=== PATIENT | male | born 1945 | race Caucasian/White ===

== ENCOUNTER → 2018-12-09 09:12 | Outpatient (CLI) | payer MEDICARE, OTHER ==
[~2018-12-09 09:12] MED LIST: BAYER CHEWABLE81 MG PO; CYANOCOBAL1000 MCG/4 SC; LIPITOR10 MG PO; NAPROSYN500 MG PO; [UNRECOGNIZED DRUG - OTHER] TOPICAL
[2018-12-18 12:19] VITALS: BMI 22.8
== END | disposition home or self-care (01) ==
LOC: D.HCCECHO 09:12
PROVIDERS: ATTEND Internal Medicine Cardiovascular Disease
DX: I20.9 Angina pectoris, unspecified (principal)

== ENCOUNTER 2018-12-18 10:59 | Outpatient (CLI) | payer MEDICARE, OTHER ==
[~2018-12-18] VITALS: Ht 172.7 cm; Wt 68.2 kg
--- NOTE | ~2018-12-18 | HEMODYNAMI ---
PATIENT:DOREEN TOBIN MEDICAL RECORD: [id number] : 43 LOCATION:[facility] ADMISSION DATE: 12/18/18 Generatedon:12/18/201815:25 Patient name: DOREEN TOBIN Patient #: [id number] SSN: : 1945 Date of study: 12/18/2018 Page: Of Hemodynamic Procedure Report Patient Data Patient Demographics Procedure consent was obtained First Name: DOREEN Gender: Male Last Name: MAHAD : 1945 Patient #: [id number] Age: 73 year(s) Race: Additional ID: [id number] Contact details [address]: [address] [place] [address] [place] State: [place] City: [place] Zip code: [address] Past Medical History Allergies: No known allergies Admission Admission Data Admission Date: 12/18/2018 Admission Time: 10:59 Arrival Date: 12/18/2018 Arrival Time: 0:00 Height (in.): 67.72 BSA: 1.8 (m2) Height (cm.): 172 BMI: 22.99 (kg/m2) Weight (lbs.): 149.92 Weight (kg.): 68 Lab Results Lab Result Date: 12/18/2018 Lab Result Time: 0:00 Biochemistry Name Units Result Min Max BUN mg/dl 12 --(-*--)-- 7 18 Creatinine mg/dl 0.9 --(-*--)-- 0.6 1.3 eGFR ml/min 88.10448 -*(----)-- 90 120 NONAFRICAN CBC Name Units Result Min Max Hematocrit % 45.5 --(-*--)-- 42 54 Hemoglobin g/dl 15.4 --(-*--)-- 13.5 17.5 Procedure Procedure Types Cath Procedure Diagnostic Procedure LHC LHC w/Coronaries Procedure Description Procedure Date Procedure Date: 12/18/2018 Procedure Start Time: 15:06 Procedure End Time: 15:21 Procedure Staff Name Function Pierre Beth MD Performing Physician Blossom Ashley RT Monitor Emely Beckham RT Monitor Rubi Rojas RT Scrub Felice Park RN Nurse Procedure Data Cath Procedure Fluoroscopy Diagnostic fluoroscopy Total fluoroscopy Time: 4.3 time: 4.3 min min Diagnostic fluoroscopy Total fluoroscopy dose: 376 dose: 376 mGy mGy Contrast Material Contrast Material Type Amount (ml) Isovue 300 63 Entry Location Entry Primary Successful Side Size Upsize Upsize Entry Closure Guzman ccessful Closure Location (Fr) 1 (Fr) 2 (Fr) Remarks Device Remarks Radial Right 6 Fr Mechanical artery Short Compression Estimated blood loss: 5 ml Diagnostic catheters Device Type Used For End Catheter Placement DIAGNOSTIC Adrien 110cm Procedure 5Fr catheter ([id number]) DIAGNOSTIC Gypsum 110cm 5 Procedure Fr catheter (660018) Procedure Complications No complications Procedure Medications Medication Administration Route Dosage Oxygen etCO2 Nasal cannula 2 l/min Lidocaine 2% added to field 20 Heparin Flush Bag added to field 2 bags (1000units/500ml NS) 0.9% NaCl I.V. 100 ml/hr Radial Cocktail I.A. 1 syringe (Verapamil 2mg/Nitro 400mcg/Heparin 1500units) Versed I.V. 1 mg Fentanyl I.V. 50 mcg Versed I.V. 1 mg Fentanyl I.V. 50 mcg Versed I.V. 1 mg Versed I.V. 1 mg Hemodynamics Rest BSA: 1.8 (m2) HGB: 15.4 (g/dl) O2 Consumption: Estimated: 214.99 (ml/min) O2 Con sumption indexed: Estimated:119.44 (ml/min/m) Heart Rate: 81 (bpm) Pressure Samples Time Site Value (mmHg) Purpose Heart Use Rate(bpm) 15:09 LV 152/-3,10 Snapshot 94 15:09 AO 110/61(77) Pullback 91 15:09 LV 141/-3,18 Pullback 91 Gradients Valve Time Site 1 Site 2 Mean SEP/DFP Peak To Heart Use (mmHg) (sec/min) Peak Rate (mmHg) (bpm) Aortic 15:09 LV AO 14 11 31 91 141/-3,18 110/61(77) Calculations Valve P-P Mean Valve Index Valve Source Name Gradient Area Flow (cm2) Aortic 31 14 31 14 Snapshots Pre Cath Intra NCS Post Cath Vital Signs Time Heart Resp SPO2 etCO2 NIBP (mmHg) Rhythm Pain Sedation Rate (ipm) (%) (mmHg) Status Level (bpm) 14:53:08 72 10 98 39.8 160/89(126) NSR 0 (11) 10(A) , No pain 14:57:20 70 49 100 30 131/85(107) NSR 0 (11) 10(A) , No pain 15:01:34 78 11 93 44.2 129/80(109) NSR 0 (11) 10(A) , No pain 15:05:44 78 19 97 34.5 121/75(96) NSR 0 (11) 10(A) , No pain 15:09:52 87 16 96 40.5 97/68(93) NSR 0 (11) 9(A) , No pain 15:13:58 86 21 94 0 104/63(94) NSR 0 (11) 9(A) , No pain 15:18:04 91 15 92 12.7 106/68(82) NSR 0 (11) 10(A) , No pain Medications Time Medication Route Dose Verified Delivered Reason Notes Effectiveness by by 14:54:55 Oxygen etCO2 2 l/min Pierre Buffie used for Nasal Kirit Park RN procedure cannula 14:55:02 Lidocaine 2% added 20ml Pierre Buffie used for to vial Kirit Park RN procedure field 14:55:09 Heparin Flush added 2 bags Pierre Buffie used for Bag to Kirit Park RN procedure (1000units/500ml field NS) 14:55:17 0.9% NaCl I.V. 100 Pierre Buffie Per ml/hr Kirit Park RN physician 15:06:05 Versed I.V. 1 mg Pierre Buffie for sedation Kirit Park RN 15:06:11 Fentanyl I.V. 50 mcg Pierre Buffie for sedation Kirit Park RN 15:06:56 Radial Cocktail I.A. 1 Pierre Pierre for (Verapamil syringe Kirit Beth MD vasodilation 2mg/Nitro 400mcg/Heparin 1500units) 15:09:10 Versed I.V. 1 mg Pierre Buffie for sedation Kirit Park RN 15:09:15 Fentanyl I.V. 50 mcg Pierre Buffie for sedation Kirit Park RN 15:12:52 Versed I.V. 1 mg Pierre Buffie for sedation Kirit Park RN 15:15:24 Versed I.V. 1 mg Pierre Buffie for sedation Kirit Park supervisor orchard Log Time Note 14:37:49 Informed consent obtained and on chart 14:38:16 Rubi Bob RT(R) sent for patient. Start room use. 14:38:18 Procedure Status Elective Heart Cath (OP). 14:38:20 Time tracking: Regular hours (M-F 7:00 - 5:00) 14:38:23 Plan of Care:Hemodynamics will remain stable., Cardiac rhythm will remain stable., Comfort level will be maintained., Respiratory function will remain adequate., Patient/ family verbilizes understanding of procedure., Procedure tolerated without complication., Recovers from procedure without complications.. 14:38:44 H&P Date Dictated: 11/25/2018 Within 30 days and on chart., H&P Addendum completed by physician on day of procedure. (MUST COMPLETE FOR ALL OUTPATIENTS). 14:38:54 Patient allergic to No known allergies 14:39:50 Patient Weight : 149.92 lbs 14:39:59 Patient Height : 67.72 inches 14:40:03 Arrival Date: 12/18/2018 12:00:00 AM 14:40:33 Lab Result : BUN 12 mg/dl 14:40:33 Lab Result : eGFR NONAFRICAN 88.36769 ml/min 14:40:33 Lab Result : Creatinine 0.9 mg/dl 14:40:34 Lab Result : Hemoglobin 15.4 g/dl 14:40:34 Lab Result : Hematocrit 45.5 % 14:48:21 Patient received from Pre/Post Procedure Room to [facility] 1 Alert and oriented. Tansferred to table in Supine position. 14:48:23 Warm blankets applied, and foster hugger turned on for patient comfort. 14:48:24 Correct patient and procedure confirmed by team. 14:48:24 ECG and BP/O2 sat monitors applied to patient. 14:52:02 Vital chart was started 14:52:04 Baseline sample Acquired. 14:52:08 Rhythm: sinus rhythm 14:52:15 Full Disclosure recording started 14:52:16 Pre-procedure instructions explained to patient. 14:52:17 Pre-op teaching completed and patient verbalized understanding. 14:52:18 Family in patients room. 14:52:20 Patient NPO since Midnight. 14:52:22 Is patient on blood thinner?No 14:52:23 Is the patient allergic to Iodine/contrast media? No. 14:52:34 Patient diabetic? No. 14:52:37 Previous problem with sedation/anesthesia? No ? 14:52:38 Snore? Yes 14:52:39 Sleep apnea? Yes 14:52:40 Deviated septum? No 14:52:41 Opens mouth fully? Yes 14:52:42 Sticks out tongue? Yes 14:52:43 Airway obstruction? No ? 14:52:44 Dentures? No ? 14:52:46 Pre procedure: right dorsailis pedis pulse 1+ Palpable, but thready & weak; easily obliterated 14:52:49 Modified Eyal's test Ulnar < 7 seconds 14:52:51 Patient pain scale 0/10 ?. 14:52:59 IV patent on arrival in left hand with 0.9% NaCl at [facility]. 14:53:02 Lab results completed and on chart. 14:53:26 Risk of Mortality: .1 14:53:29 Risk of blood transfusion: .4 14:53:32 Risk of MINISTERIO: 1 14:53:38 Right Radial & Right Groin area was prepped with chlora-prep and draped in sterile fashion 14:53:39 Alarms reviewed by R. N. 14:53:39 Sharps counted by scrub and verified by R.N. 14:53:41 Use device set Radial Dx or PCI 14:53:42 ACIST Syringe (20583) opened to sterile field. 14:53:45 Bag Decanter () opened to sterile field. 14:53:45 ACIST Hand Control (88437) opened to sterile field. 14:53:46 ACIST Manifold (60945) opened to sterile field. 14:53:46 Tegaderm 4 x 4 (1626W) opened to sterile field. 14:53:47 Medline Cath Pack ([id number]) opened to sterile field. 14:53:48 MBrace Wrist Support ([id number]) opened to sterile field. 14:53:49 NEEDLE Cook 21G 4cm Radial (R85777) opened to sterile field. 14:53:50 EMERALD Guide Wire (040-247) opened to sterile field. 14:53:50 SHEATH 6FR RAIN (5338967) opened to sterile field. 14:54:55 Oxygen 2 l/min etCO2 Nasal cannula was administered by Felice Park RN; used for procedure; Verbal order read back and verified. 14:55:02 Lidocaine 2% 20ml vial added to field was administered by Felice Park RN; used for procedure; Verbal order read back and verified. 14:55:09 Heparin Flush Bag (1000units/500ml NS) 2 bags added to field was administered by Felice Park RN; used for procedure; Verbal order read back and verified. 14:55:17 0.9% NaCl 100 ml/hr I.V. was administered by Felice Park RN; Per physician; Verbal order read back and verified. 15:04:29 Zero performed for pressure channel P1 15:05:30 Physician arrived 15:05:31 --------ALL STOP TIME OUT------ 15:05:32 Final Timeout: patient, procedure, and site verified with staff and physician. All members of the team are in agreement. 15:05:34 Right Radial & Right Groin site verified by team. 15:05:40 Fire Safety Assessment: A--An alcohol-based skin anteseptic being used preoperatively., C--Open oxygen or nitrous oxide is being used., D--An ESU, laser, or fiber-optic light is being used. 15:05:44 Physical assessment completed. ASA score P 2 - A patient with mild systemic disease as per Pierre Beth MD. 15:05:49 2) 60-89 Mildly reduced kidney function, and other findings (as for stage 1) point to kidney disease. 15:05:52 Maximum allowable contrast dose (3.7 X eGFR X 0.75)244 ml. 15:05:57 Sedation plan: IV Moderate Sedation Medication:Versed, Fentanyl 15:06:05 Versed 1 mg I.V. was administered by Felice Park RN; for sedation; Verbal order read back and verified. 15:06:08 Procedure started. 15:06:11 Fentanyl 50 mcg I.V. was administered by Felice Park RN; for sedation; Verbal order read back and verified. 15:06:21 Local anesthetic to right radial artery with Lidocaine 2% by Pierre Beth MD.INITIAL ACCESS ONLY 15:06:38 A 6 Fr Short sheath was inserted into the Right Radial artery 15:06:48 A DIAGNOSTIC Adrien 110cm 5Fr catheter (203162) was advanced over the wire and used for Procedure. 15:06:56 Radial Cocktail (Verapamil 2mg/Nitro 400mcg/Heparin 1500units) 1 syringe I.A. was administered by Pierre Beth MD; for vasodilation; Verbal order read back and verified. 15:08:49 LV gram done using SOFIA 15:08:57 Injector settings: Ml/sec: 5, Volume: 15, 15:09:10 Versed 1 mg I.V. was administered by Felice Park RN; for sedation; Verbal order read back and verified. 15:09:15 Fentanyl 50 mcg I.V. was administered by Felice Park RN; for sedation; Verbal order read back and verified. 15:09:19 LV hemodynamics recorded. 15:09:35 EF : 60 % 15:11:21 RCA angiography performed. 15:11:24 Catheter exchanged over wire. 15:11:32 A DIAGNOSTIC Gypsum 110cm 5 Fr catheter ([id number]) was advanced over the wire and used for Procedure. 15:12:52 Versed 1 mg I.V. was administered by Felice Park RN; for sedation; Verbal order read back and verified. 15:14:06 LCA angiography performed. 15:14:12 ACCDominant side:Left 15:15:24 Versed 1 mg I.V. was administered by Felice Park RN; for sedation; Verbal order read back and verified. 15:15:27 Injector settings: Ml/sec: 3, Volume: 5, 15:17:07 Catheter removed. 15:17:23 ZEPHYR REGULAR TR BAND (812250) opened to sterile field. 15:17:35 Procedure ended.(Physican Out) 15:18:08 Sheath removed intact; hemostasis achieved with Mechanical Compression to the Right Radial artery. 15:18:17 Contrast amount:Isovue 300 63ml. 15:18:39 Fluoroscopy time 04.30 minutes. 15:18:47 Fluoroscopy dose: 376 mGy 15:18:47 Flurop Dose total: 376 15:18:58 Dose Area Product 34279 mGy/cm. 15:19:02 Maximum allowable dose exceeded? No. 15:19:03 Sharps counted by scrub and verified by R.N. 15:19:07 Clovis band inflated with 8cc of air. 15:19:10 Insertion/operative site no bleeding no hematoma. 15:19:17 Post right radial artery:stable 15:19:20 Post Procedure Pulses reassessed and unchanged 15:19:26 Post-procedure physical assessment completed. ASA score P 2 - A patient with mild systemic disease as per Pierre Beth MD. 15:19:34 Post procedure rhythm: unchanged. 15:19:38 Estimated blood loss: 5 ml 15:19:41 Post procedure instruction explained to patient.Patient verbalizes understanding. 15:19:43 Patient needs reinforcement of post procedure teaching. 15:20:05 Procedure and supply charges have been captured, reviewed, submitted and are correct. 15:21:18 Procedure Complication : No complications 15:21:22 Vital chart was stopped 15:21:26 [facility] Findings: mild to moderate CAD (<70%) 15:21:33 Operative report dictated upon procedure completion. 15:21:34 See physician's report for complete and final results. 15:21:37 Report given to Pre/Post Procedure Room. 15:21:42 Patient transfered to Pre/Post Procedure Room with Stretcher. 15:21:44 Procedure ended. 15:21:44 Full Disclosure recording stopped 15:21:48 End room use (Document Last) Device Usage Item Name Manufacture Quantity Catalog Hospital Part Current Minima l Lot# / Number Charge Number Stock Stock Serial# Code ACIST Acist 1 62024 144885 471946 [id number] 20 Syringe Medical (36715) Systems Inc Bag Microtek 1 355118 86733 023516 5 Decanter Medical Inc. () ACIST Hand Acist 1 23656 908398 472078 714364 5 Control Medical (65194) Systems Inc ACIST Acist 1 07794 936040 631400 595834 5 Manifold Medical (30563) Systems Inc Tegaderm 4 3M 1 1626W 380519 897411 547802 5 x 4 (1626W) Medline Medline 1 [id number] 29103 245536 5 Cath Pack ([id number]) MBrace Advanced 1 140-0250-00 126928 34392 753619 5 Wrist Vascular Support Dynamics ([id number]) NEEDLE Clarify, Inc 1 A14101 772422 336821 077560 5 21G 4cm Radial (K88247) EMERALD Cardinal 1 502-455 347186 604939 815122 5 Guide Wire Health (502-455) SHEATH 6FR Cardinal 1 9962315 957050 6925334 756032 5 [facility] Health (2143924) DIAGNOSTIC Terumo 1 40-5023 570704 764375 691389 5 Adrien 110cm 5Fr catheter (247509) DIAGNOSTIC Terumo 1 40-5013 849051 434448 682626 5 Gypsum 110cm 5 Fr catheter (371547) ZEPHYR Cardinal 1 000526 391714 2906904 031586 5 REGULAR TR Health BAND (349265) Signature Audit [place] Stage Time Signature Unsigned Intra-Procedure 12/18/2018 Emely 3:22:43 PM Bhavani RT(R) (CV) Intra-Procedure 12/18/2018 Felice Park RN 3:23:24 PM Intra-Procedure 12/18/2018 Pierre Beth MD 3:25:35 PM [facility] [address] [place] [address]
[2018-12-18] MEDS ORDERED: NAPROSYN500 MG PO (12:09)
[2018-12-18] MEDS ORDERED: BAYER CHEWABLE81 MG PO (12:09)
[2018-12-18] MEDS ORDERED: LIPITOR10 MG PO (12:09)
[2018-12-18] MEDS ORDERED: CYANOCOBAL1000 MCG/4 SC (12:10)
[2018-12-18] MEDS ORDERED: [UNRECOGNIZED DRUG - OTHER] TOPICAL (12:11)
[2018-12-18 12:19] VITALS: BP 157/86; Ht 172.7 cm; Wt 68.2 kg
[2018-12-18 12:40] LABS: CALC OSMOLALITY 280 mosm/kg (275-300); CALCIUM 8.7 mg/dL (8.5-10.1); CARBON DIOXIDE 29.9 mmol/L (21.0-32.0); CHLORIDE - SERUM 105 mmol/L (98-107); CREATININE - SERUM 0.9 mg/dL (0.6-1.3); GLUCOSE 96 mg/dL (74-106); POTASSIUM - SERUM 3.9 mmol/L (3.5-5.1); SODIUM 141 mmol/L (136-145); UREA NITROGEN 12 mg/dL (7-18); eGFR NON AFRICAN AMERICAN 88 mL/min (90-120)
[2018-12-18 12:43] LABS: BASOPHILS 0.4 % (0-2); EOSINOPHILS 2.1 % (0-7); HEMATOCRIT 45.5 % (42.0-54.0); HEMOGLOBIN 15.4 g/dL (13.5-17.5); IMMATURE GRANULOCYTES 0.1 % (0-5); LYMPHOCYTES 20.2 % (15-50); MCH 30.1 pg (26.0-34.0); MCHC 33.8 g/dL (31.0-37.0); MCV 88.9 fL (80.0-100.0); MEAN PLATELET VOLUME 9.6 fL (7.4-10.4); MONOCYTES 6.7 % (2-11); NEUTROPHILS 70.5 % (40-80); PLATELET COUNT 203 10x3/uL (130-400); RBC 5.12 10x6/uL (4.20-6.10); RDW 12.4 % (11.5-14.5); WBC 8.6 10x3/uL (4.8-10.8)
[2018-12-18 12:51] LABS: ALT (SGPT) 26 U/L (10-68); CHOL - HDL RATIO 3.6 ratio (2.3-4.9); CHOLESTEROL, TOTAL 149 mg/dL (0-200); HDL CHOLESTEROL 42 mg/dL (32-96); LDL CHOLESTEROL 95 mg/dL (0-100); LDL-HDL RATIO 2.3 ratio (1.5-3.5); TRIGLYCERIDE 61 mg/dL (30-200)
--- NOTE | 2018-12-18 15:30 | NUR ---
PT RECEIVED VIA STRETCHER FROM SYNTHETIC FILAMENT EXTRUDER FOR RECOVERY. PT SLEEPING BUT VERBALLY AROUSABLE. PT DENIES PAIN OR DISCOMFORT. CARDIAC MONITORS PLACED ON PT, O2 PLACED AT 2L/NC. HR NSR RATE 71, BP 112/67, RR 10, O2 SAT 99. ZYPHER BAND AND IMMOBILIZER IN PLACE, DRESSING CDI NO BLEEDING OR HEMATOMA NOTED. CALL LIGHT IN REACH, AT BEDSIDE. IV PATENT INFUSING VIA ORDERS TO L ARM.
--- NOTE | 2018-12-18 15:53 | NUR ---
PT RESTING W/O COMPLAINTS. Z BAND AND IMMOBILIZER IN PLACE, DRESSING CDI NO BLEEDING OR SWELLING NOTED. ARM PINK AND WARM, CAP REFILL BRISK. HR 84, BP 105/68, RR 10, SAT 99. CALL LIGHT IN REACH. PO FLUIDS GIVEN. AT BEDSIDE
--- NOTE | 2018-12-18 16:04 | NUR ---
DR MCLEAN AT BS TALKING W PT AND REGARDING PLAN OF CARE AND PROCEDURE RESULTS.
--- NOTE | 2018-12-18 16:49 | NUR ---
PT RESTING W/O COMPLAINTS. 4CC AIR REMOVED FROM Z BAND W NO BLEEDING NOTED. ARM PINK AND WARM, CAP REFILL REMAINS BRISK. DRESSING CDI. HR 73, BP 121/71, RR 11. O2 REMOVED, SAT 99 ON ROOM AIR. REMAINS AT BEDSIDE. CALL LIGHT IN REACH. DENIES NEEDS.
--- NOTE | 2018-12-18 17:06 | NUR ---
3 ADD'L CC AIR REMOVED FROM Z BAND, NO BLEEDING NOTED. URINAL GIVEN. PT DENIES OTHER NEEDS. CALL LIGHT IN REACH
--- NOTE | 2018-12-18 17:28 | NUR ---
DISCHARGE INSTRUCTIONS REVIEWED W PT AND , BOTH VERBALIZED UNDERSTANDING. REMAINING AIR REMOVED FROM Z BAND W/O BLEEDING NOTED. IV REMOVED W CATH INTACT, MONITORS REMOVED. PT VOIDED 400CC CLEAR YELLOW URINE IN URINAL. PT UP TO DRESS FOR DISCHARGE W ASSIST FROM
--- NOTE | 2018-12-18 17:30 | NUR ---
Z BAND REMOVED, NO BLEEDING OR HEMATOMA NOTED. 2X2 AND TEGADERM DRESSING APPLIED. 1740 PT DISCHARGED VIA WC TO WAITING IN PRIVATE VEHICLE. PT HAD ALL BELONGINGS AND DISCHARGE INSTRUCTIONS IN HAND.
== END 2018-12-18 17:35 | disposition home or self-care (01) ==
LOC: D.CATH 10:59
PROVIDERS: ATTEND Internal Medicine Cardiovascular Disease
DX: I25.119 Atherosclerotic heart disease of native coronary artery with unspecified angina pectoris (principal); R94.30 Abnormal result of cardiovascular function study, unspecified